=== PATIENT | male | born 1930 | race Caucasian/White ===

== ENCOUNTER 2017-03-12 16:40 | Emergency (ER) | payer OTHER ==
[2017-03-12 15:16] LABS: BASOPHILS 0.2 %; BASOPHILS ABSOLUTE 0.02 10/3/uL (0.0-0.16); EOSINOPHILS 0.2 %; EOSINOPHILS ABSOLUTE 0.02 10/3/uL (0.0-0.53); ER CBC TAT 0 Hrs 10 Mins; HEMATOCRIT 36.8 % (40.0-51.0); HEMOGLOBIN 12.4 g/dL (13.6-17.8); IMMATURE GRANULOCYTES 0.3 %; IMMATURE GRANULOCYTES ABSOLUTE 0.03 10/3/uL (0.0-0.11); LYMPHOCYTES 17.5 %; LYMPHOCYTES ABSOLUTE 1.61 10/3/uL (0.67-4.30); MEAN CORPUS HGB CONC 33.7 g/dL (32.0-36.0); MEAN CORPUSCULAR HEMOGLOB 30.6 pg (26.0-34.0); MEAN CORPUSCULAR VOLUME 90.9 fL (80-100); MEAN PLATELET VOLUME 9.5 fL (9.2-13.0); MONOCYTES 5.6 %; MONOCYTES ABSOLUTE 0.52 10/3/uL (0.21-1.20); NEUTROPHILS 76.2 %; NEUTROPHILS ABSOLUTE 7.01 10/3/uL (2.02-8.40); PLATELET COUNT 272 10/3/uL (150-400); RBC DISTRIBUTION WIDTH 13.8 % (12.0-16.0); RED CELL COUNT 4.05 10/6/uL (4.7-6.1); WHITE BLOOD CELLS 9.2 10/3/uL (4.5-10.5)
[2017-03-12 15:17] LABS: MANUAL DIFF NO %
[2017-03-12 15:24] LABS: INTERNATIONAL NORMAL RATI 1.1 UNITS (-); PROTIME (NOT ORD) 13.8 SEC (12.0-14.5)
[2017-03-12 15:25] LABS: PARTIAL THROMBO TIME 26.9 SEC (22.5-37.2)
[2017-03-12 15:35] LABS: ALBUMIN 4.4 G/DL (3.5-5.0); ALKALINE PHOSPHATASE 56 U/L (45-117); CALCIUM, SERUM 9.2 MG/DL (8.5-10.4); CHEST PAIN PROFILE TAT 0 Hrs 22 Mins; CHLORIDE, SERUM 105 MMOL/L (96-112); CO2 (CARBON DIOXIDE) 26 MMOL/L (24-34); CPK 81 U/L (0-200); CREATININE 1.32 MG/DL (0.70-1.30); DIRECT BILIRUBIN 0.1 MG/DL (0.0-0.4); GFR AFRICAN AMERICAN 57 ML/MIN (>=60); GFR NON AFRICAN AMERICAN 49 ML/MIN (>=60); GLUCOSE, SERUM 94 MG/DL (60-99); INDIRECT BILIRUBIN(NOT ORDER) 0.5 MG/DL (0.1-0.9); SGOT(AST) 15 U/L (5-40); SGPT(ALT) 23 U/L (5-65); SODIUM, SERUM 139 MMOL/L (135-148); TOTAL BILIRUBIN 0.6 MG/DL (0-1.2); TROPONIN I <0.02 NG/ML (<0.05)
[2017-03-12 15:37] LABS: BUN (BLOOD UREA NITROGEN) 26 MG/DL (6-23); POTASSIUM, SERUM 3.4 MMOL/L (3.5-5.3)
[2017-03-12 16:24] LABS: ASCORBIC ACID (UR NOT ORDER) 40 (NEG); BILIRUBIN, URINE NEGATIVE (NEG); ER URINALYSIS TAT 0 Hrs 15 Mins; KETONE, URINE NEGATIVE (NEG); LEUKOCYTE ESTERASE(NOT OR NEG (NEG); NITRITE (URINE) NEG (NEG); WBC (NOT ORDERED) (RFLEX) 1 (0-5)
[~2017-03-12 16:40] MED LIST: APRES25 PO; ASAB PO; ASABAYER PO; ATEN25 PO; ATEN50 PO; BIOTIN5 MG OR; CENTRUM TAB1 TAB PO; COQ10100 MG OR; ENDOCET1 TA4 PO; ENZYME DIGES OR; FLOMAX4 PO; FRESHKOTE OPH; GAVISCON6; GLUCCHONDR PO; HYDROCHLOROT12.5 MG PO; HYZAAR 100/25 T1 TAB PO; KAPIDEX60 MG PO; KDUR20 PO; KLOR-CON M2020 MEQ PO; MIRALAXPKT PO; NORV10 PO; OCUVITE PO; PANCREATIC ENZYME PO; PLAVIX PO; PRADAXA150 MG PO; PROBIOTIC PO; PROTONIX PO; RED YEAS1 OR; REFRESH PLUS O0.4 ML OPH; SPIRIVA INH; SYN1 PO; SYN112 PO; T PO; TEKTURNA300 MG PO; V2 PO; VITC500 PO; VOLTAREN1 % TOP; ZOCOR40 PO; [UNRECOGNIZED DRUG - OTHER] PO
== END 2017-03-12 17:55 | disposition home or self-care (01) ==
LOC: ER 16:40
PROVIDERS: Emergency Medicine
DX: H53.8 Other visual disturbances (principal); R53.1 Weakness; R00.2 Palpitations; I48.91 Unspecified atrial fibrillation; Z95.0 Presence of cardiac pacemaker; Z79.82 Long term (current) use of aspirin; Z79.899 Other long term (current) drug therapy
CPT/HCPCS: 71020; 80048; 80076; 81001; 82550; 83735; 84484; 85025; 85610; 85730; 93005; 93971; 99285